=== PATIENT | male | born 2000 | race African-American/Black ===

== ENCOUNTER 2018-05-21 23:33 | Emergency (ER) | payer OTHER ==
[~2018-05-21] VITALS: Ht 167.6 cm; Wt 63.5 kg
[2018-05-22] MEDS ORDERED: SENNA-DOCUSATE1 EAC1 PO (03:20)
[2018-05-22] MEDS ORDERED: NORCO 5-325 TA1 EACH PO (03:20)
[2018-05-22] MEDS ORDERED: NAPROSYN500 MG PO (03:20)
[2018-05-22 03:41] VITALS: BP 125/84
== END 2018-05-22 03:42 | disposition home or self-care (01) ==
LOC: ER 23:33
DX: S30.0XXA Contusion of lower back and pelvis, initial encounter (principal); J45.909 Unspecified asthma, uncomplicated; F17.200 Nicotine dependence, unspecified, uncomplicated; W19.XXXA Unspecified fall, initial encounter; Y93.89 Activity, other specified; Y92.89 Other specified places as the place of occurrence of the external cause; Y99.8 Other external cause status